=== PATIENT | female | born 1960 | race Caucasian/White ===

== ENCOUNTER 2022-11-03 10:00 | Inpatient (IN) | payer OTHER ==
[~2022-11-03] VITALS: Ht 157.5 cm; Wt 81.6 kg
[2022-11-10] MEDS ORDERED: IRBESARTAN150 MG PO (13:42)
[2022-11-10] MEDS ORDERED: FELODIPINE PO (13:42)
[2022-11-11] MEDS ORDERED: FELODIPINE ER10 MG (13:27)
[2022-11-11] MEDS ORDERED: ATORVASTATIN CA10 MG (13:27)
[2022-11-11] MEDS ORDERED: DICLOFENAC SODI75 MG (13:27)
[2022-11-11] MEDS ORDERED: MONTELUKAST SOD10 MG (13:27)
== END 2022-11-14 20:50 | DRG 470 ==
LOC: SURH 11-11 09:45 → O/R 11-11 09:45 → SURG 11-11 11:30 → SURH 11-11 17:31
PROVIDERS: ADMIT Orthopaedic Surgery; ATTEND Orthopaedic Surgery
PROC: 0SRD0J9 Replacement of Left Knee Joint with Synthetic Substitute, Cemented, Open Approach (ICD-10-PCS; principal; 2022-11-11 11:30)
DX: M17.12 Unilateral primary osteoarthritis, left knee (principal); D62 Acute posthemorrhagic anemia; M85.662 Other cyst of bone, left lower leg; I10 Essential (primary) hypertension; Z96.652 Presence of left artificial knee joint